=== PATIENT | female | born 1935 | race Caucasian/White ===

== ENCOUNTER 2018-05-12 18:02 | Inpatient (IN) | payer MEDICARE ==
[~2018-05-12] VITALS: Ht 167.6 cm; Wt 66.2 kg
--- NOTE | 2018-05-12 18:15 | NUR ---
RECEIVED PT A CASE OF PSYCHOSIS, GRAVELY DISABLED AND HARM TO SLEF, PT ALERT CONFUSED, CONECTED TO MONITOR, BLOOD SAMPLES TAKEN AND SET TO LAB.
[2018-05-12] MEDS ORDERED: LIPITOR (18:17)
[2018-05-12] MEDS ORDERED: METOPROLOL (18:17)
[2018-05-12] MEDS ORDERED: DONEPEZIL (18:17)
[2018-05-12] MEDS ORDERED: ALPRAZOLAM (18:17)
[2018-05-12 19:10] LABS: BASOPHILS # (AUTO) 0.1 K/uL (0.0-8.0); BASOPHILS % (AUTO) 0.9 % (0.0-2.0); EOSINOPHILS # (AUTO) 0.1 K/uL (0.0-0.7); EOSINOPHILS % (AUTO) 0.8 % (0.0-7.0); HEMATOCRIT 40.6 % (31.2-41.9); HEMOGLOBIN 13.6 g/dL (10.9-14.3); LYMPHOCYTES # (AUTO) 1.3 K/uL (20.0-40.0); LYMPHOCYTES % (AUTO) 16.7 % (20.5-51.5); MEAN CORPUSCULAR HEMOGLOBIN 29.6 uug (24.7-32.8); MEAN CORPUSCULAR HGB CONC 33 g/dL (32.3-35.6); MEAN CORPUSCULAR VOLUME 88.8 fL (75.5-95.3); MONOCYTES # (AUTO) 0.4 K/uL (2.0-10.0); MONOCYTES % (AUTO) 4.4 % (0.0-11.0); NEUTROPHILS # (AUTO) 6.1 K/uL (1.8-8.9); NEUTROPHILS % (AUTO) 77.2 % (38.5-71.5); PLATELET COUNT (AUTO) 103 K/uL (179-408); RED BLOOD CELL COUNT(AUTO) 4.57 MIL/uL (3.63-4.92); WHITE BLOOD COUNT (AUTO) 7.9 K/uL (3.8-11.8)
--- NOTE | 2018-05-12 19:10 | NUR ---
12 LEAD EKG DONE, AND PT SENT TO RADIOLOGY UNIT FOR CT SCAN
--- NOTE | 2018-05-12 19:14 | NUR ---
REPORT GIVEN TO KOMAL MCLAUGHLIN
[2018-05-12 19:16] LABS: CARBON DIOXIDE 28 mmol/L (21-32); CHLORIDE 108 mmol/L (98-107); CREATININE 0.9 mg/dL (0.6-1.3); GLUCOSE 96 mg/dL (74-106); POTASSIUM 3.1 mmol/L (3.5-5.1); UREA NITROGEN, BLOOD 10 mg/dL (7-18)
[2018-05-12 19:22] LABS: ALANINE AMINOTRANSFERASE 17 U/L (14-59); ALKALINE PHOSPHATASE 157 U/L (50-136); ASPARTATE AMINOTRANSFERASE 13 U/L (15-37); BILIRUBIN,DIRECT 0.2 mg/dL (0.0-0.2); BILIRUBIN,TOTAL 0.9 mg/dL (0.2-1.0); CREATINE KINASE, TOTAL 34 U/L (26-192); TOTAL PROTEIN, SERUM 6.3 g/dL (6.4-8.2)
[2018-05-12 19:28] LABS: ACETAMINOPHEN < 2.0 ug/mL (10-30); ETHANOL < 3 MG/DL (0-0)
[2018-05-12 19:54] LABS: THYROID STIMULATING HORMONE 1.359 mIU/mL (0.358-3.740)
[2018-05-12 19:59] LABS: *BILIRUBIN,URIN NEGATIVE (NEGATIVE); *BLOOD, URINE NEGATIVE (NEGATIVE); *CLARITY,URINE SLIGHTLY CLOUDY (CLEAR); *KETONES,URINE TRACE (NEGATIVE); *PROTEIN,URINE NEGATIVE (NEGATIVE); *UROBILINOGEN,URINE 0.2 E.U./dl (NORMAL); LEUKOCYTE ESTERASE ,URINE NEGATIVE (NEGATIVE); NITRITE, URINE NEGATIVE (NEGATIVE); PH,URINE 5.5 (5.0-8.0); UGLUCOSE NEGATIVE (NEGATIVE)
[2018-05-12 20:11] LABS: *COLOR,URINE DARK YELLOW (YELLOW)
[2018-05-12 20:12] LABS: BACTERIA,URINE FEW /HPF (NONE SEEN); MUCUS,URINE MANY /LPF (0-FEW); SQUAMOUS EPITHELIAL CELL,UR MODERATE /HPF (NONE SEEN)
[2018-05-12 20:13] LABS: URINE AMORPHOUS URATE FEW /HPF
[2018-05-12 20:14] LABS: *AMPHETAMINE, URINE NEGATIVE (NEGATIVE); *BARBITURATE, URINE NEGATIVE (NEGATIVE); *CANNABINOID, URINE NEGATIVE (NEGATIVE); *COCCAINE, URINE NEGATIVE (NEGATIVE); *OPIATE, URINE NEGATIVE (NEGATIVE); *PHENCYCLIDINE SCREEN,URINE NEGATIVE (NEGATIVE)
--- NOTE | 2018-05-12 20:41 | NUR ---
LINDSAY BOYCE" (PT'S SIGNIFICANT OTHER" PHONE NUMBER: [phone]
[2018-05-12] MEDS ORDERED: POTASSIUM BICARBONATE/CIT AC 25 MEQ TABLET.EFF PO ONE (21:00)
[2018-05-12] MEDS ORDERED: POTASSIUM BICARBONATE/CIT AC 25 MEQ TABLET.EFF ONE (21:01)
[2018-05-12] MEDS ORDERED: HYDROCODONE/APAP 5-325MG TABLET PO PRN (21:15)
[2018-05-12] MEDS ORDERED: ONDANSETRON 4 MG/2 ML VIAL IV PRN (21:15)
[2018-05-12] MEDS ORDERED: ACETAMINOPHEN 325 MG TABLET PO PRN (21:15)
[2018-05-12] MEDS ORDERED: Z GUARD REMEDY PASTE 57 GM TUBE TOP PRN (21:15)
[2018-05-12] MEDS ORDERED: MAGNESIUM HYDROXIDE 30 ML LIQUID UDC PO PRN (21:15)
--- NOTE | 2018-05-12 21:22 | NUR ---
Pt. admitted to [facility]HU , under care of [facility]. Diagnosis: Psychosis Report given to Lawrence SAUCEDA Belongs List completed Sitter at bedside. No acute distress noted.
--- NOTE | 2018-05-12 21:55 | NUR ---
ADMITTED PATIENT LILY MERRILL OVERFLOW UNDER THE CARE OF DR. PABLO MERRILL MD, AND FAUSTINO ADAMSON, BELONGING LIST DONE. PATIENT WALLET WITH HOUSE AND CREDIT CARDS SURRENDER TO COLLABORATING SUPERVISING PHYSICIAN.
[2018-05-12 22:47] VITALS: BP 167/78
[2018-05-12] MEDS: CLONIDINE HCL 0.1 MG TABLET PO PRN (23:05)
--- NOTE | 2018-05-13 05:09 | NUR ---
PATIENT SLEPT FOR 2 1/2 NO COMPLAIN OF PAIN, PATIENT NOTED WITH ANXIETY BUT REDIRECT PATIENT AND EFFECTIVE, ASSISTED WITH TOILETING, AND CONTINUE TO REORIENT. PATIENT COOPERATIVE, CONT 1;1 SITTER FOR SAFETY, CONT TO MONITOR.
[2018-05-13] MEDS: PANTOPRAZOLE SODIUM 40 MG TABLET.DR PO SCH ×2 (05:47→05:50)
[2018-05-13 06:40] LABS: CARBON DIOXIDE 31 mmol/L (21-32); CHLORIDE 109 mmol/L (98-107); CHOLESTEROL 126 mg/dL (<200); CREATININE 0.9 mg/dL (0.6-1.3); GLUCOSE 97 mg/dL (74-106); HDL CHOLESTEROL 52 mg/dL (40-60); MAGNESIUM 1.9 mg/dL (1.8-2.4); POTASSIUM 3.2 mmol/L (3.5-5.1); TRIGLYCERIDES 53 MG/DL (30-150); UREA NITROGEN, BLOOD 12 mg/dL (7-18)
[2018-05-13 07:12] LABS: BASOPHILS # (AUTO) 0.1 K/uL (0.0-8.0); BASOPHILS % (AUTO) 1.1 % (0.0-2.0); EOSINOPHILS # (AUTO) 0.1 K/uL (0.0-0.7); EOSINOPHILS % (AUTO) 1.5 % (0.0-7.0); HEMATOCRIT 37.8 % (31.2-41.9); HEMOGLOBIN 12.8 g/dL (10.9-14.3); LYMPHOCYTES # (AUTO) 1.5 K/uL (20.0-40.0); LYMPHOCYTES % (AUTO) 25.5 % (20.5-51.5); MEAN CORPUSCULAR HEMOGLOBIN 30.1 uug (24.7-32.8); MEAN CORPUSCULAR HGB CONC 34 g/dL (32.3-35.6); MEAN CORPUSCULAR VOLUME 89.2 fL (75.5-95.3); MONOCYTES # (AUTO) 0.4 K/uL (2.0-10.0); MONOCYTES % (AUTO) 6.2 % (0.0-11.0); NEUTROPHILS % (AUTO) 65.7 % (38.5-71.5); PLATELET COUNT (AUTO) 89 K/uL (179-408); RED BLOOD CELL COUNT(AUTO) 4.24 MIL/uL (3.63-4.92)
--- NOTE | 2018-05-13 07:36 | NUR ---
PATIENT AWAKE/ALERT, BUT CONFUSED AT THIS TIME. VERBALIZING STORIES THAT DO NOT MAKE MUCH SENSE AT THIS TIME. COOPERATIVE. BLOOD PRESSURE ELEVATED. NO S/S OF DISTRESS. REORIENTATION WILL BE PROVIDED THROUGHOUT SHIFT. 1:1 SITTER AT BEDSIDE FOR SAFETY AND FOR 5150 HOLD. WILL CONTINUE TO MONITOR THROUGHOUT SHIFT.
[2018-05-13 07:55] VITALS: BP 183/83
[2018-05-13] MEDS ORDERED: POTASSIUM CHLORIDE 20 MEQ TAB.PRT.SR PO ONE (08:00)
[2018-05-13] MEDS: CALCIUM CARBONATE 500 MG TABLET PO SCH (08:20)
[2018-05-13] MEDS: METOPROLOL TARTRATE 50 MG TABLET PO SCH ×2 (08:21→17:07)
[2018-05-13 08:28] LABS: BAND % (MANUAL) 1 % (0-10); EOSINOPHILS % (MANUAL) 2 % (0-8); LYMPHOCYTES % (MANUAL) 26 % (20-40); MONOCYTES % (MANUAL) 6 % (2-10); NEUTROPHILS % (MANUAL) 65 % (42-75)
[2018-05-13] MEDS ORDERED: ONDANSETRON HCL 4 MG TABLET PO PRN (09:00)
[2018-05-13 11:49] VITALS: BP 173/80
--- NOTE | 2018-05-13 11:49 | NUR ---
elevated blood pressure 173/80. will administer catapres 0.1 mg PRN dose.
[2018-05-13] MEDS: CLONIDINE HCL 0.1 MG TABLET PO PRN ×2 (11:57→20:07)
--- NOTE | 2018-05-13 15:40 | NUR ---
PATIENT TRANSFERRED DOWN TO MENTAL HEALTH UNIT AT THIS TIME. STABLE CONDITION, NO S/S OF DISTRESS. BLOOD PRESSURE STABILIZED 113/69. REPORT GIVEN TO CHEYENNE SAUCEDA.
[2018-05-13 16:37] VITALS: BP 112/86
[2018-05-13] MEDS: ATORVASTATIN 10 MG TABLET PO SCH (20:05)
[2018-05-13] MEDS: QUETIAPINE FUMARATE 25 MG TABLET PO SCH (20:05)
--- NOTE | 2018-05-13 20:10 | NUR ---
RECEIVED PATIENT IN HER ROOM IN BED, SHE IS NOTED AWAKE A/O X 3, PLEASANT AND CALM. SHE IS ABLE TO AMBULATE WITH STEADY GAIT AND ABLE TO MAKE HER NEEDS KNOWN. SHE IS NOTED WITH B/P OF 161/69MMHG AND PULSE 62BPM. CATAPRES 0.1 MG PO PRN WAS GIVEN FOR SBP >160. PATIENT NOTED WITH FLIGHT OF IDEAS. FAIR INSIGHT NOTED INTO THE REASON FOR HIS ADMISSION TO MHU. SHE STATES, "I DON'T KNOW WHY I AM HERE, I AM NOT SUPPOSED TO BE HERE IN THIS UNIT, I JUST CAME TO THE HOSPITAL BECAUSE OF MY HIGH BLOOD PRESSURE, I HOPE I WILL BE OUT SOON". PATIENT WAS REDIRECTED. SHE DENIES SI/HI, SHE DENIES AH/VH. SHE IS ABLE TO CFS. SAFETY WAS EMPHASIS, WILL CONTINUE TO MONITOR.
[2018-05-13 20:58] VITALS: BP 118/71
--- NOTE | 2018-05-13 21:00 | NUR ---
B/P WAS RECHECKED: B/P IS 118/71 AND PULSE 62BPM. PRN WAS EFFECTIVE. WILL CONTINUE TO MONITOR.
[2018-05-14] MEDS: PANTOPRAZOLE SODIUM 40 MG TABLET.DR PO SCH (06:43)
--- NOTE | 2018-05-14 06:43 | NUR ---
PATIENT SLEPT FOR APPROX 7.30 HRS THROUGH THE NIGHT. SHE REFUSED PROTONIX QAM. WILL CONTINUE TO MONITOR.
[2018-05-14 07:30] VITALS: BP 165/92
[2018-05-14] MEDS: METOPROLOL TARTRATE 50 MG TABLET PO SCH ×2 (08:10→20:14)
[2018-05-14] MEDS: CALCIUM CARBONATE 500 MG TABLET PO SCH (08:10)
[2018-05-14] MEDS ORDERED: METOPROLOL TARTRATE 50 MG TABLET PO SCH (09:00)
--- NOTE | 2018-05-14 09:00 | NUR ---
During medication passed , noted pt's left Elbow swallow but denies any pain or discomfort.pt stated that she did tripped and fell at home one month ago.Md made aware with new ordered made.
[2018-05-14] MEDS ORDERED: METOPROLOL TARTRATE 25 MG TABLET PO ONE (09:15)
--- NOTE | 2018-05-14 13:16 | NUR ---
GPS/RN- results received for patient xray of left elbow, epic notified Negrito Lozano NP. orders received for consult for Ortho, Joseph Noel M.D. Contacted Dr Bert Locke @ [phone], physician paged
--- NOTE | 2018-05-14 15:32 | NUR ---
GPS/RN- DR MCBRIDE PAGED THRU EXCHANGE, NO CALL FROM OF YET.
[2018-05-14 15:54] VITALS: BP 130/59
--- NOTE | 2018-05-14 16:04 | NUR ---
GPS.DAYRON Noel will see patient informed of results, no new orders at this time
--- NOTE | 2018-05-14 19:30 | NUR ---
RECEIVED PATIENT IN HER BED, SHE IS NOTED AWAKE A/O X 3. SHE IS NOTED PLEASANT. DENIES PAIN OR DISCOMFORT AT THIS TIME. SHE IS ABLE TO AMBULATE WITH STEADY GAIT AND ABLE TO MAKE HER NEEDS KNOW. SHE IS NOTED TALKATIVE, HYPERVERBAL WITH FLIGHT OF IDEAS. SHE IS ABLE TO DESCRIBED HOW SHE FELL. ONE MONTH AGO CAUSING A FX DISLOCATION WITHIN THE DISTAL HUMERUS. SHE STATED THAT "I WAS GETTING OUT OF THE CAR SO, WHEN A CLOSED THE DOOR AND STARTED WALKING A TRIPPED AND FELL. I SOON FELT A SOB PAIN IN MY LEFT ARM". SHE ALSO SAID THAT THIS INCIDENT HAPPEN ONE MOTH AGO. PATIENT WAS REASSURED; HOWEVER, SHE CONTINUE SAYING THAT "SHE DOES NOT BELONG IN THIS UNIT AND THAT SHE IS HOPING TO BE DISCHARGED TOMORROW BACK HOME BECAUSE SHE AND HER BOYFRIEND ARE PLANNING VACATIONS TO [place]". CONTINUE COMPLIANT WITH MEDICATION REGIMENT DIET AND PLAN OF CARE. SAFETY WAS EMPHASIS, BED AT LOWEST POSITION WITH WHEELS LOCKED AND FREQUENT HEAD CHECKS. WILL CONTINUE TO MONITOR.
[2018-05-14] MEDS: QUETIAPINE FUMARATE 25 MG TABLET PO SCH (20:14)
[2018-05-14] MEDS: ATORVASTATIN 10 MG TABLET PO SCH (20:14)
[2018-05-14 20:37] VITALS: BP 121/64
--- NOTE | 2018-05-15 02:25 | NUR ---
PATIENT NOTED AWAKE, ATTEMPTED TO REDIRECTED HER; HOWEVER, SHE CONTINUE WITH FLIGHT OF IDEAS, HYPERVERBAL. SHE STATED THAT "YOU ARE KEEPING ME HERE AGAINST MY WILL. YOU ALL SHOULD BE ASHAMED BECAUSE YOU ARE KEEPING ME HERE, AGAINST ,Y WILL. YOU TOOK EVERYTHING FROM ME"."I NEED TO LEAVE TOMORROW". PATIENT WAS REASSURED, REDIRECTED, BUT CONTINUE HYPERVERBAL IN HER ROOM. WE WILL CONTINUE TO MONITOR,
--- NOTE | 2018-05-15 03:05 | NUR ---
PATIENT IS OBSERVED SLEEPING COMFORTABLE IN HER BED, WILL CONTINUE TO MONITOR,
[2018-05-15] MEDS ORDERED: CLONAZEPAM 0.5 MG TABLET PO PRN (05:45)
--- NOTE | 2018-05-15 06:24 | NUR ---
PATIENT SLEPT FOR APPROX 1.00 HR THROUGH THE NIGHT. CONTINUE HYPERVERBAL; HOWEVER, NO AGGRESSIVE/COMBATIVE BX NOTED AT THIS TIME. WILL CONTINUE TO MONITOR.
[2018-05-15] MEDS: PANTOPRAZOLE SODIUM 40 MG TABLET.DR PO SCH (06:55)
--- NOTE | 2018-05-15 06:55 | NUR ---
PATIENT REFUSED PROTONIX QAM. SHE STATED THAT SHE DOES NOT TAKE THAT KIND OF MEDICATION. PT WAS EXPLAINED THE BENEFITS VS S/E OF PROTONIX, BUT STILL REFUSED. WILL CONTINUE TO MONITOR.
[2018-05-15 07:30] VITALS: BP 182/96
[2018-05-15 07:34] LABS: BASOPHILS % (AUTO) 0.7 % (0.0-2.0); EOSINOPHILS # (AUTO) 0.1 K/uL (0.0-0.7); EOSINOPHILS % (AUTO) 0.7 % (0.0-7.0); HEMATOCRIT 40.1 % (31.2-41.9); HEMOGLOBIN 13.7 g/dL (10.9-14.3); LYMPHOCYTES # (AUTO) 1.6 K/uL (20.0-40.0); LYMPHOCYTES % (AUTO) 22.6 % (20.5-51.5); MEAN CORPUSCULAR HEMOGLOBIN 30.4 uug (24.7-32.8); MEAN CORPUSCULAR HGB CONC 34 g/dL (32.3-35.6); MEAN CORPUSCULAR VOLUME 88.8 fL (75.5-95.3); MONOCYTES # (AUTO) 0.3 K/uL (2.0-10.0); MONOCYTES % (AUTO) 4.9 % (0.0-11.0); NEUTROPHILS # (AUTO) 4.9 K/uL (1.8-8.9); NEUTROPHILS % (AUTO) 71.1 % (38.5-71.5); PLATELET COUNT (AUTO) 103 K/uL (179-408); RED BLOOD CELL COUNT(AUTO) 4.51 MIL/uL (3.63-4.92); WHITE BLOOD COUNT (AUTO) 6.9 K/uL (3.8-11.8)
[2018-05-15 07:40] LABS: CARBON DIOXIDE 27 mmol/L (21-32); CHLORIDE 107 mmol/L (98-107); CREATININE 0.9 mg/dL (0.6-1.3); GLUCOSE 92 mg/dL (74-106); POTASSIUM 3.7 mmol/L (3.5-5.1); UREA NITROGEN, BLOOD 26 mg/dL (7-18)
[2018-05-15] MEDS: CALCIUM CARBONATE 500 MG TABLET PO SCH (08:36)
[2018-05-15] MEDS: METOPROLOL TARTRATE 50 MG TABLET PO SCH ×2 (08:36→20:18)
[2018-05-15 11:45] VITALS: BP_SYST 14; BP_SYST 140; BP_DIAS 78
--- NOTE | 2018-05-15 13:00 | NUR ---
PATIENT SEEM BY ARE WHIPPLE FOR CONSULT,PATIENT REFUSED TO HAVE ORIF SURGERY ON LEFT ELBOW.
--- NOTE | 2018-05-15 15:42 | NUR ---
Initial DC Plan: Patient currently lives home alone [[id number] [place] [address]; [phone]], but stated she feel she can no longer live on her own. SW will follow up with MD, patient, and patient's partner Anthony [[phone]]to discuss most appropriate discharge plans. SW will form a safe and proper discharge.
[2018-05-15] MEDS: QUETIAPINE FUMARATE 25 MG TABLET PO SCH (16:55)
[2018-05-15 17:38] VITALS: BP 140/81
[2018-05-15 19:30] VITALS: BP 162/91
[2018-05-15] MEDS: ATORVASTATIN 10 MG TABLET PO SCH (20:18)
[2018-05-15] MEDS: TEMAZEPAM 7.5 MG CAPSULE PO PRN (21:03)
--- NOTE | 2018-05-15 22:00 | NUR ---
received to care, very anxious and confused, requesting to go home, believing she is at the bank, difficult to redirect, or orient to reality. PRN restiril was given at 2102, for insomnia. as of 2199, she appears to be asleep. no distress noted. will continue to monitor closely.
--- NOTE | 2018-05-16 06:00 | NUR ---
slept 7 hours. assisted with am care, and shower. refused am protonix dose.
[2018-05-16] MEDS: PANTOPRAZOLE SODIUM 40 MG TABLET.DR PO SCH (06:13)
[2018-05-16] MEDS: QUETIAPINE FUMARATE 25 MG TABLET PO SCH ×2 (08:25→17:06)
[2018-05-16] MEDS: CALCIUM CARBONATE 500 MG TABLET PO SCH (08:25)
[2018-05-16] MEDS: METOPROLOL TARTRATE 50 MG TABLET PO SCH ×2 (08:26→20:03)
[2018-05-16 11:01] VITALS: BP 171/94
[2018-05-16] MEDS: MEMANTINE HCL 5 MG TABLET PO SCH (11:25)
[2018-05-16 15:46] VITALS: BP 162/97
[2018-05-16 19:30] VITALS: BP 166/86
[2018-05-16] MEDS: ATORVASTATIN 10 MG TABLET PO SCH (20:02)
[2018-05-16] MEDS: DONEPEZIL 10 MG TABLET PO SCH (20:02)
[2018-05-16] MEDS: TEMAZEPAM 7.5 MG CAPSULE PO PRN (21:00)
--- NOTE | 2018-05-16 22:00 | NUR ---
received to care, confused, but pleasant upon approach. PRN restoril was given at 2100, for insomnia. as of 2200, she appears to be asleep. no distress noted. will continue to monitor closely.
[2018-05-17] MEDS: PANTOPRAZOLE SODIUM 40 MG TABLET.DR PO SCH (07:00)
--- NOTE | 2018-05-17 07:01 | NUR ---
slept 6.25 hours. assisted with am care. refused am protonix dose.
[2018-05-17 07:30] VITALS: BP_SYST 144; BP_SYST 177; BP_DIAS 89
[2018-05-17] MEDS: MEMANTINE HCL 5 MG TABLET PO SCH (08:15)
[2018-05-17] MEDS: METOPROLOL TARTRATE 50 MG TABLET PO SCH ×2 (08:15→20:11)
[2018-05-17] MEDS: QUETIAPINE FUMARATE 25 MG TABLET PO SCH ×2 (08:15→16:42)
[2018-05-17] MEDS: CALCIUM CARBONATE 500 MG TABLET PO SCH (08:16)
[2018-05-17 15:00] VITALS: BP 157/72
[2018-05-17] MEDS ORDERED: IV NORMAL SALINE 500 ML BAG IV ONE (17:30)
[2018-05-17] MEDS ORDERED: IV NORMAL SALINE 500 ML IV ONE (17:45)
[2018-05-17 18:04] LABS: BASOPHILS # (AUTO) 0.1 K/uL (0.0-8.0); BASOPHILS % (AUTO) 0.6 % (0.0-2.0); EOSINOPHILS % (AUTO) 0.1 % (0.0-7.0); HEMATOCRIT 43.6 % (31.2-41.9); HEMOGLOBIN 14.4 g/dL (10.9-14.3); LYMPHOCYTES # (AUTO) 1.1 K/uL (20.0-40.0); LYMPHOCYTES % (AUTO) 11.7 % (20.5-51.5); MEAN CORPUSCULAR HEMOGLOBIN 29.8 uug (24.7-32.8); MEAN CORPUSCULAR HGB CONC 33 g/dL (32.3-35.6); MONOCYTES # (AUTO) 0.5 K/uL (2.0-10.0); MONOCYTES % (AUTO) 4.7 % (0.0-11.0); NEUTROPHILS # (AUTO) 7.9 K/uL (1.8-8.9); NEUTROPHILS % (AUTO) 82.9 % (38.5-71.5); PLATELET COUNT (AUTO) 92 K/uL (179-408); RED BLOOD CELL COUNT(AUTO) 4.84 MIL/uL (3.63-4.92); WHITE BLOOD COUNT (AUTO) 9.6 K/uL (3.8-11.8)
--- NOTE | 2018-05-17 18:11 | NUR ---
GPS/RN- Rapid Response called at 1714, resolved 1730 PATIENT NOTED TO BE WITH UNSTEADY GAIT AMBULATING THROUGHOUT HALLWAY, NURSING RESIDENT ASSISTED PATIENT TO SITTING IN CHAIR, NOTED DIAPHORETIC, HYPOTENSIVE AT THIS TIME 88/47, HR 76 BLOOD SUGAR CHECKED 142 MG/DL, PATIENT PALE,AMS FROM BASELINE. BAUTISTA GILMORE N.P. HERE TO SEE PATIENT, PATIENT MORE RESPONSIVE, RETURNING TO HER BASELINE. LABS ORDERED BY N.P., AND ORDERS TO BE CARRIED. PATIENT AT HER BASELINE AT THIS TIME, TALKING WITH STAFF, PATIENT SITTING UP IN GERICHAIR NEXT TO NURSING STATION WITH IV FLUIDS RUNNING ON RIGHT HAND . PATIENT CALM AND COOPERATIVE. BLOOD PRESSURE 101/63, HR 83, RR 18, 02 SAT 96% ON ROOM AIR. PATIENT WITH VISITOR AT HER SIDE, EATING DINNER AND HAVING CONVERSATION WITH VISITOR, BOYFRIEND.
[2018-05-17 18:12] LABS: CARBON DIOXIDE 23 mmol/L (21-32); CHLORIDE 103 mmol/L (98-107); CREATININE 1.2 mg/dL (0.6-1.3); GLUCOSE 132 mg/dL (74-106); POTASSIUM 3.9 mmol/L (3.5-5.1); UREA NITROGEN, BLOOD 27 mg/dL (7-18)
[2018-05-17 18:16] LABS: PHOSPHOROUS 4.8 mg/dL (2.5-4.9)
--- NOTE | 2018-05-17 19:01 | NUR ---
GPS/RN- DR CASTRO NOTIFIED OF PATIENT RAPID RESPONSE TODAY. NO NEW ORDERS AT THIS TIME.
[2018-05-17] MEDS: ATORVASTATIN 10 MG TABLET PO SCH (20:12)
[2018-05-17] MEDS: DONEPEZIL 10 MG TABLET PO SCH (20:12)
[2018-05-17 20:18] VITALS: BP 112/51
--- NOTE | 2018-05-17 23:45 | NUR ---
Pt TOOK OUT HER IV FROM HER (R) HAND. 4X4 PLACED ON IV SITE AND COVERED WITH TAPE.
[2018-05-18] MEDS: PANTOPRAZOLE SODIUM 40 MG TABLET.DR PO SCH (06:13)
--- NOTE | 2018-05-18 06:29 | NUR ---
RECEIVED Pt SITTING IN CHAIR IN THE HALLWAY, A+Ox1 TO SELF ONLY. CONFUSED, FORGETFUL, AND DISORIENTED, Pt REQUIRES FREQUENT REORIENTATION AND REDIRECTION. Pt IS DELUSIONAL AND THINKS [place] W[place] TO THE [place] ALL DAY WITH HER BOYFRIEND. Pt EXPERIENCED A NEAR-SYNCOPLE EPISODE AND LOW BP ON DAY SHIFT, AND 500ml NS BOLUS GIVEN, IV TO REMAIN IN PLACE PENDING NO FURTHER EPISODES UNTIL THE AM. HS LOPRESSOR HELD DUE TO LOW DBP, Pt DENIES ANY SYMPTOMS OF HYPOTENSION AT THIS TIME. Pt REMAINS HIGHLY VISIBLE AND NEAR THE NURSE'S STATION FOR CLOSE MONITORING. SHOWERED THIS AM.
--- NOTE | 2018-05-18 06:30 | NUR ---
REFUSED AM PROTONIX, Pt STATED, "I DON'T NEED THAT MEDICINE." RISKS AND BENEFITS EXPLAINED. CENTER PUNCH OPERATOR AWARE.
[2018-05-18 07:35] VITALS: BP 142/72
[2018-05-18] MEDS: MEMANTINE HCL 5 MG TABLET PO SCH (09:00)
[2018-05-18] MEDS: CALCIUM CARBONATE 500 MG TABLET PO SCH (09:00)
[2018-05-18] MEDS: METOPROLOL TARTRATE 50 MG TABLET PO SCH (09:00)
[2018-05-18] MEDS: QUETIAPINE FUMARATE 25 MG TABLET PO SCH (09:00)
--- NOTE | 2018-05-18 15:17 | NUR ---
Gps/Carbon Setter- Discharge planning in progress, patient to sweet pickled fruit maker prescription at [facility] @ [address],[place], [place] , ([phone]) . Reviewed discharge instructions, anxious to go home. Boyfriend in to transport patient to home. No complaints noted, patient verbalized understanding.
--- NOTE | 2018-05-18 15:20 | NUR ---
DC Note: Patient was released by the court. Patient will be discharged into the care of her significant other Robinson Mendes [[phone]]. Robinson will be caring for patient until he can move her into an assisted living in [facility]. Patient will follow up with Dr. Osbaldo Gonsalez [[address], [place] [address]; ]. Patient was provided referrals for medicare accepting psychiatrists including: Dr. Sood [ ], Dr. Onofre and Dr. Lin [[phone]]. Patient was provided additional mental health referrals to [facility] [[phone]] and [facility] [[phone]].
--- NOTE | 2018-05-18 15:20 | NUR ---
Firearms Report: HECTOR submitted Mental Health Report to [facility] on 05/18.
--- NOTE | 2018-05-18 16:02 | NUR ---
Gps/Technical Solutions Consultant- Patient anxious to go home, reviewed medications, and claimed she has them at home, she was made aware she has to cone picker prescriptions from [facility] in [place]( seroquel prescription from Dr Hernandez) . Patient is selective with her medications when reviewed with her she claimed she takes Aricept 10 mg. at bedtime for 30 years, , she has calcium, atorvastatin, metoprolol at home, refused namenda claimed she does not take them anymore. Instructed to have her blood pressure check at home , boyfriend was also well informed. Both patient and boyfriend appeared to be rushing to get home, but both verbalized understanding of the discharged instructions. Emphasized to follow up with her Primary Medical Doctor as well as her Psychiatrist after discharged.All belongings returned back to patient. Discharged in good spirit via private car accompanied by Boyfrienjose g Reyes.
== END 2018-05-18 16:05 | disposition home or self-care (01) | DRG 885 ==
LOC: ER 18:04 → GPSOV 21:26 → GPS 05-13 15:49
PROVIDERS: ADMIT Psychiatry & Neurology Psychiatry; ATTEND Nurse Practitioner Acute Care
DX: F23 Brief psychotic disorder (principal); F02.80 Dementia in other diseases classified elsewhere, unspecified severity, without behavioral disturbance, psychotic disturbance, mood disturbance, and anxiety; G93.40 Encephalopathy, unspecified; S42.452 Displaced fracture of lateral condyle of left humerus; G30.9 Alzheimer's disease, unspecified; D69.6 Thrombocytopenia, unspecified; E78.5 Hyperlipidemia, unspecified; E87.6 Hypokalemia; W19.XXXD Unspecified fall, subsequent encounter; M48.02 Spinal stenosis, cervical region; I11.9 Hypertensive heart disease without heart failure; F32.9 Major depressive disorder, single episode, unspecified; E83.51 Hypocalcemia
CPT/HCPCS: 36415; 70030-TC; 70450; 71045; 72125; 73070; 80307; 83735; 84100; 84443; 85025; 85730; 87086; 93005; A4663; G0480; G0480-TC; J7040